=== PATIENT | female | born 1955 | race Caucasian/White ===

== ENCOUNTER 2022-06-08 13:49 | Emergency (ER) | payer OTHER ==
[~2022-06-08 13:49] MED LIST: ONDANSETRON ODT4 MG PO; PREDNISONE 20MG20 MG PO; VENTOLIN HFA IN18 GM INH; ZPAK PO
[2022-06-08 15:47] LABS: CORONAVIRUS 2019 SARS-COV-2 NEGATIVE (NEGATIVE); INFLUENZA A NAA NEGATIVE (NEGATIVE)
[2022-06-08 15:56] LABS: BASOPHIL 0.8 % (0-2); EOSINOPHIL 3.6 % (0-7); HCT 43.1 % (37.0-47.0); HGB 14.5 g/dl (12.5-16.0); MCH 30.2 pg (25.0-31.0); MCHC 33.6 g/dL (32.0-36.0); MCV 89.8 fL (78.0-100.0); MONOCYTE 6.4 % (0-12); MPV 10.4 fL (6.0-9.5); NEUTROPHIL 74.8 % (41-80); NRBC 0; PLT 346 K/uL (150-400); RDW 12.2 % (11.5-14.0); WBC 16.7 K/uL (4.0-10.5)
[2022-06-08 16:13] LABS: ALBUMIN 4.1 g/dL (3.4-5.0); BILIRUBIN - TOTAL 0.4 mg/dL (0.2-1.0); BUN/CREAT RATIO (CALC) 26.8 RATIO; CREATININE 0.82 mg/dL (0.51-0.95); GLOBULIN (CALCULATION) 3.4 g/dL; POTASSIUM 2.7 mmol/L (3.5-5.1); TOTAL PROTEIN 7.5 g/dL (6.4-8.2)
[2022-06-08 16:51] LABS: LACTIC ACID 2.3 mmol/L (0.4-1.9)
[2022-06-08] MEDS ORDERED: ONDANSETRON ODT4 MG PO (19:19)
[2022-06-08] MEDS ORDERED: CIPRO500 MG PO (19:19)
[2022-06-08] MEDS ORDERED: METRONIDAZOLE500 MG PO (19:19)
[2022-06-09] MEDS ORDERED: ONDANSETRON ODT4 MG PO (12:06)
[2022-06-09] MEDS ORDERED: CIPRO500 MG PO (12:06)
[2022-06-09] MEDS ORDERED: METRONIDAZOLE500 MG PO (12:06)
== END 2022-06-08 19:46 | disposition home or self-care (01) ==
LOC: FER 13:49
PROVIDERS: Nurse Practitioner Family
DX: K52.9 Noninfective gastroenteritis and colitis, unspecified (principal); E11.9 Type 2 diabetes mellitus without complications; Z88.5 Allergy status to narcotic agent; Z79.84 Long term (current) use of oral hypoglycemic drugs; Z91.040 Latex allergy status; Z20.822 Contact with and (suspected) exposure to COVID-19
CPT/HCPCS: 36415; 80053; 83605; 85025; 87040; J2543; J3480; J7030; J7040; Q9967; U0002